=== PATIENT | female | born 1930 | race Caucasian/White ===

== ENCOUNTER 2016-11-04 02:10 | Inpatient (IN) | payer MEDICARE, OTHER ==
[~2016-11-04] VITALS: Ht 167.6 cm; Wt 64.9 kg
[2016-11-04] VITALS (11 sets, daily range): BP systolic 98–154; BP diastolic 55–80
[~2016-11-04 02:10] MED LIST: ACET325T21 PO; ALPR0.25 PO; ASPI81TA2 PO; FAMO20TA5 PO; LACT1CAP6 PO; METO50TA2 PO; TRAM50TA PO; VITA1CAP PO; VITA400C36 PO
[2016-11-04] MEDS ORDERED: FENTANYL PF 100 MCG/2 ML VIAL. IV PRN ×3 (02:30→17:15)
[2016-11-04 02:42] LABS: BASO % 0 % (0-3); EOS % 3 % (0-3); HEMATOCRIT 29.3 % (36.0-47.0); HEMOGLOBIN 9.5 g/dL (12.0-15.5); LYMPH # 1.2 x10^3/uL (1.0-4.8); LYMPH % 19 % (24-48); MEAN CORPUSCULAR HEMOGLOBIN 29 pg (25-35); MEAN CORPUSCULAR HGB CONC 33 g/dL (31-37); MEAN CORPUSCULAR VOLUME 89 fL (79-100); MONO % 10 % (0-9); NEUT % 67 % (31-73); PLATELET COUNT 288 x10^3/uL (140-400); RED BLOOD COUNT 3.28 x10^6/uL (3.50-5.40); WHITE BLOOD COUNT 6.4 x10^3/uL (4.0-11.0)
[2016-11-04 02:46] LABS: CALCIUM 8.6 mg/dL (8.5-10.1); CREATININE 1.7 mg/dL (0.6-1.0); GFR 28.4; POTASSIUM 3.6 mmol/L (3.5-5.1)
[2016-11-04 02:49] LABS: INR 1.2 (0.8-1.1); PROTHROMBIN TIME PATIENT 14.6 SEC (11.7-14.0)
[2016-11-04 02:51] LABS: ALBUMIN 2.9 g/dL (3.4-5.0); ALBUMIN/GLOBULIN RATIO 0.7 (1.0-1.7); TOTAL BILIRUBIN 0.3 mg/dL (0.2-1.0)
--- NOTE | 2016-11-04 03:15 | RAD ---
PROCEDURE CT head without contrast and CT cervical spine without contrast dated 11/04/2016. HISTORY Pain after fall. TECHNIQUE Contiguous axial imaging of the head was performed from skull base to vertex. In addition, axial imaging of the cervical spine performed with thin cut coronal and sagittal reconstructions.Exposure: One or more of the following individualized dose reduction techniques were utilized for this exam: 1. Automated exposure control. 2. Adjustment of the mA and/or kV according to patient size. 3. Use of iterative reconstruction technique. COMPARISON None. FINDINGS Ventricles and sulci are mildly prominent for age. No midline shift or mass effect. Mild patchy low density in the deep/subcortical periventricular white matter. No hemorrhage or extra-axial collection. Posterior fossa and brainstem unremarkable. Visualized paranasal sinuses and mastoid air cells are clear. No acute calvarial abnormality. Images of the cervical spine were acquired skull base to T3. Slight anterolisthesis of C2 on C3 with mild retrolisthesis of C5 on C6. Vertebral body heights are maintained. No prevertebral soft tissue swelling. Posterior elements are intact. No evidence of fracture. Moderate multilevel endplate hypertrophic change with prominent uncovertebral spurring throughout. Severe disc space narrowing at C3-C4, C4-C5, C5-C6 and C6-C7. Mild to moderate facet arthropathy throughout. There is resultant moderate to severe bilateral foraminal stenosis at the mid and lower cervical levels. Multilevel broad-based disc osteophyte complexes resulting in multilevel mild to moderate central stenosis throughout. Visualized soft tissue structures are unremarkable. Low-density nodule at the left lobe thyroid gland measures 9 millimeters in size. Dense calcification of the bilateral carotid bifurcation. Limited images of the lung apices are grossly clear. IMPRESSION HEAD - No evidence of acute intracranial hemorrhage or mass. - Mild chronic small vessel ischemic changes and atrophy. IMPRESSION CERVICAL SPINE: - No evidence of fracture or malalignment. - Moderate multilevel cervical spondylosis. Electronically signed by: Arnel Mcnally (Nov 04, 2016 03:14:12)
[2016-11-04 03:44] LABS: BILIRUBIN,URINE NEGATIVE (NEG); GLUCOSE,URINE NEGATIVE (NEG); NITRITE,URINE POSITIVE (NEG); PROTEIN,URINE NEGATIVE (NEG-TRACE); UROBILINOGEN,URINE 0.2 mg/dL (0.2 mg/dL)
[2016-11-04 03:50] LABS: BACTERIA,URINE MANY /HPF (0-FEW); RBC,URINE 0 /HPF (0-2)
--- NOTE | 2016-11-04 04:18 | ACF ---
Admission Forms Criteria MUSCULOSKELETAL DISEASE GRG Clinical Indications for Admission to Inpatient Care (Place 'X' for any and all applicable criteria): Hospital admission is needed for appropriate care of the patient because of ANY ONE of the following: [X]I. Fracture, dislocation, or other musculoskeletal injury requiring inpatient care(medical) as indicated by ANY ONE of the following(4)(5)(6)(7) [ ]a) Vertebral fracture requiring observation for instability or neurologic compromise (8) [ ]b) Compartment syndrome (proven or cannot be ruled out during observation level of care) (9) [ ]c) Limb-threatening injury [X]d) Major injury requiring inpatient stabilization such as traction initiation or external fixation before internal fixation or closure of complex or open fracture [X]e) Major injury requiring inpatient treatment after emergency or observation level care (as appropriate) [ ]f) Severe pain requiring acute inpatient management [ ]II. Newly diagnosed or suspected bone, joint, or orthopedic device infection (e.g., osteomyelitis, septic arthritis) needing ANY ONE of the following(1)(2)(3) [ ]a) IV antibiotics that cannot be initiated in other than inpatient setting (e.g., patient too unstable or home infusion not available) [ ]b) Device removal or replacement [ ]c) Bone or soft tissue debridement [ ]d) Joint drainage (drain placement or repetitive aspirations) [ ]III. Severe rheumatologic disease (e.g., systemic lupus erythematosus, rheumatoid arthritis) with complications or comorbidities (Also use Optimal Recovery Care Criteria or General Recovery Criteria as appropriate on the basis of predominant condition), including ANY ONE of the following(10 )(11)(12)(13) [ ]a) Severe infection (e.g., FACULTY DEAN infection, sepsis) (14) [ ]b) Respiratory complications, including ANY ONE of the following: [ ]i) Pleural effusion with respiratory compromise [ ]ii) Pulmonary hypertension with congestive failure [ ]iii) Respiratory failure [ ]iv) Pulmonary hemorrhage (15) [ ]c) Hematologic disease, including ANY ONE of the following: [ ]i) Coagulopathy with bleeding [ ]ii) Thrombosis with hypercoagulable state [ ]iii) Thrombotic thrombocytopenic purpura [ ]d) Cerebritis with seizures, psychosis, or other severe abnormalities [ ]e) Vertebral destruction with monitoring needed for cervical myelopathy& possible respiratory compromise [ ]f) Exacerbation that requires inpatient treatment (e.g., intravenous immunosuppression) (16) [ ]g) Acute renal failure [ ]IV. Severe vasculitis with complications or comorbidities (Also use Optimal Recovery Care Criteria or General Recovery Criteria as appropriate on the basis of predominant condition), including ANY ONE of the following(11)(12)(17)(18)(19)(20) [ ]a) FACULTY DEAN vasculitis with seizures, psychosis, or other severe abnormalities (22) [ ]b) Renal failure (16) [ ]c) Pulmonary hemorrhage (15) [ ]d) Cerebral infarction [ ]e) Gastrointestinal ischemia [ ]f) Gangrene or threatened amputation [ ]g) Exacerbation that requires inpatient treatment (e.g., intravenous immunosuppression) (19)(21) [ ]V. Severe myopathy as indicated by ANY ONE of the following (28)(29) [ ]a) New onset of airway compromise or inability to swallow [ ]b) Respiratory deterioration with observation needed for impending respiratory failure [ ]c) Exacerbation that requires inpatient treatment (e.g., intravenous immunosuppression) [ ]. Severe gout (crystal arthropathy) as indicated by ANY ONE of the following (23)(24) [ ]a) Severe pain requiring acute inpatient management [ ]b) Exacerbation that requires inpatient treatment (e.g., intravenous treatment) [ ]VII.Rhabdomyolysis and ANY ONE of the following (25)(26)(27) [ ]a) Acute renal failure [ ]b) Need for intravenous hydration after emergency or observation level care (as appropriate) [ ]c) Inability to maintain oral hydration [ ]d) Change in mental status [ ]e) Electrolyte abnormality that remains after emergency or observation level care (as appropriate) [ ]VIII Post amputation complication, as indicated by ANY ONE of the following [ ]a) Infection [ ]b) Dehiscence [ ]c) Myodesis failure [ ]IX. Severe pain requiring acute inpatient management as indicated by ALL of the following (30)(31)(32) [ ]a) Continuous or frequent (e.g., every 2 to 4 hrs) parenteral analgesics required [A] [ ]b) Rapid improvement expected from treatment or acute intervention ( e.g., surgery, anesthesia procedure[B] [ ]X. Musculoskeletal Disease and ALL of the following: [ ]a) Symptom or finding for which emergency and observation care have failed or are not considered appropriate (Use General Criteria: Observation Care as appropriate) [ ]b) Presence of ANY ONE of the following [ ]i) A General Admission Criteria [ ]ii) A Pediatric General Admission Criteria The original [facility] content created by [facility] has been revised. The portions of the content which have been revised are identified through the use of italic text or in bold, and [facility] has neither reviewed nor approved the modified material. All other unmodified content is copyright [facility]. Please see references footnoted in the original [facility] edition 2016 Admission Criteria Met?: Yes BRODIE FUNK Nov 04, 2016 04:18
[2016-11-04] MEDS ORDERED: MORPHINE SULFATE 4 MG/ML DISP.SYRIN. IV PRN ×2 (04:30→17:15)
[2016-11-04] MEDS ORDERED: MORPHINE SULFATE 4 MG/ML DISP.SYRIN. IV ONE (04:30)
[2016-11-04] MEDS: IV NORMAL SALINE 1000ML BAG 1,000 ML IV SCH ×5 (04:36→18:32)
--- NOTE | 2016-11-04 05:01 | ED.ADGEN ---
Past Medical History Past Medical History: Cancer, Dementia, GERD, Hypertension Past Surgical History: Cancer Surgery Additional Past Surgical Histo: RIGHT MASECTOMY Alcohol Use: None Drug Use: None Adult General Chief Complaint Chief Complaint: MECHANICAL FALL HPI HPI Patient is a 86 year old woman, history of breast cancer status post mastectomy , hypertension, dementia, GERD, who presents to the emergency department via EMS after mechanical fall at her [facility]. Patient states that she was attempting to walk to the bathroom by herself when she fell. She was found lying on the ground by [facility] facility next to her bed. 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 Patient denies any neck pain or headache, any weakness numbness or tingling, any chest pain or shortness breath, any nausea or vomiting. 200 baseline metal status per nursing report. Based on age, mental status, mechanism injury with distracting injury, c-collar placed upon arrival to the emergency department. Review of Systems Review of Systems Constitutional: Denies fever or chills. [] Eyes: Denies change in visual acuity. [] HENT: Denies nasal congestion or sore throat. [] Respiratory: Denies cough or shortness of breath. [] Cardiovascular: Denies chest pain or edema. [] GI: Denies abdominal pain, nausea, vomiting, bloody stools or diarrhea. [] : Denies dysuria. [] Musculoskeletal: Denies back pain, complaining of pain in the left lower extremity and hip region. Integument: Denies rash. [] Neurologic: Denies headache, focal weakness or sensory changes. [] Endocrine: Denies polyuria or polydipsia. [] Lymphatic: Denies swollen glands. [] Psychiatric: Denies depression or anxiety. [] Current Medications Current Medications Current Medications Medications (Trade) Dose Ordered Sig/Brandon Start Time Stop Time Status Last Admin Dose Admin Fentanyl Citrate (Fentanyl 2ml Vial) 50 mcg PRN Q15MIN PRN 11/04/16 02:30 11/05/16 02:29 11/04/16 03:11 50 MCG Allergies Allergies Allergies Coded Allergies Type Severity Reaction Last Updated Verified cephalexin Allergy Unknown 10/21/15 Yes ciprofloxacin Allergy Unknown 10/21/15 Yes ibuprofen Allergy Unknown 10/21/15 Yes levofloxacin Allergy Unknown 10/21/15 Yes lisinopril Allergy Unknown 10/21/15 Yes losartan Allergy Unknown 10/21/15 Yes Physical Exam Physical Exam Constitutional: Well developed, well nourished, distress secondary to pain, non- toxic appearance. [] HENT: Normocephalic, atraumatic, bilateral external ears normal, oropharynx moist, no oral exudates, nose normal. [No hemotympanum, no septal hematoma.] Eyes: PERRLA, EOMI, conjunctiva normal, no discharge. [] Neck: Normal range of motion, no tenderness, supple, no stridor. C-collar in place. [] Cardiovascular:Heart rate regular rhythm, no murmur [] Lungs & Thorax: Diminished breath sounds at bases bilaterally, no rhonchi, rales or wheezing identified. No chest or crepitus or tenderness. [] Abdomen: Bowel sounds normal, soft, no tenderness, no rebound, rigidity, no guarding, no masses, no pulsatile masses. [] Skin: Warm, dry, no erythema, no rash. [] Back: No midline tenderness, no step-offs or deformities, no CVA tenderness. [] Extremities: Patient with shortening and slight rotation of the left lower extremity, with firmness and swelling of the left thigh, tenderness to palpation along the greater trochanter, pulses are 3+ equal intact bilaterally, no cyanosis, no clubbing, no other injuries identified, no edema. [] Neurologic: Alert and oriented, baseline mental status, normal motor function, normal sensory function, no focal deficits noted. [] Psychologic: Affect normal, judgement normal, mood normal. [] Current Patient Data Vital Signs Vital Signs Date Time Temp Pulse Resp B/P Pulse Ox O2 Delivery O2 Flow Rate FiO2 11/04/16 03:11 16 94 Room Air 11/04/16 02:10 98.7 127/62 98.7 Lab Values Laboratory Tests Test 11/04/16 02:25 11/04/16 03:15 White Blood Count 6.4x10^3/uL (4.0-11.0) Red Blood Count 3.28x10^6/uL (3.50-5.40) L Hemoglobin 9.5g/dL (12.0-15.5) L Hematocrit 29.3% (36.0-47.0) L Mean Corpuscular Volume 89fL (79-100) Mean Corpuscular Hemoglobin 29pg (25-35) Mean Corpuscular Hemoglobin Concent 33g/dL (31-37) Red Cell Distribution Width 14.0% (11.5-14.5) Platelet Count 288x10^3/uL (140-400) Neutrophils (%) (Auto) 67% (31-73) Lymphocytes (%) (Auto) 19% (24-48) L Monocytes (%) (Auto) 10% (0-9) H Eosinophils (%) (Auto) 3% (0-3) Basophils (%) (Auto) 0% (0-3) Neutrophils # (Auto) 4.3x10^3uL (1.8-7.7) Lymphocytes # (Auto) 1.2x10^3/uL (1.0-4.8) Monocytes # (Auto) 0.6x10^3/uL (0.0-1.1) Eosinophils # (Auto) 0.2x10^3/uL (0.0-0.7) Basophils # (Auto) 0.0x10^3/uL (0.0-0.2) Prothrombin Time 14.6SEC (11.7-14.0) H Prothrombin Time INR 1.2 (0.8-1.1) H PTT 34SEC (24-38) Sodium Level 142mmol/L (136-145) Potassium Level 3.6mmol/L (3.5-5.1) Chloride Level 106mmol/L (98-107) Carbon Dioxide Level 28mmol/L (21-32) Anion Gap 8 (6-14) Blood Urea Nitrogen 41mg/dL (7-20) H Creatinine 1.7mg/dL (0.6-1.0) H Estimated GFR (Cockcroft-Gault) 28.4 BUN/Creatinine Ratio 24 (6-20) H Glucose Level 104mg/dL (70-99) H Calcium Level 8.6mg/dL (8.5-10.1) Total Bilirubin 0.3mg/dL (0.2-1.0) Aspartate Amino Transferase (AST) 20U/L (15-37) Alanine Aminotransferase (ALT) 15U/L (14-59) Alkaline Phosphatase 101U/L (46-116) Total Protein 7.0g/dL (6.4-8.2) Albumin 2.9g/dL (3.4-5.0) L Albumin/Globulin Ratio 0.7 (1.0-1.7) L Urine Collection Type U cath Urine Color Yellow Urine Clarity Clear Urine pH 5.0 Urine Specific [place] 1.010 Urine Protein Negativemg/dL (NEG-TRACE) Urine Glucose (UA) Negativemg/dL (NEG) Urine Ketones (Stick) Negativemg/dL (NEG) Urine Blood Negative (NEG) Urine Nitrite Positive (NEG) Urine Bilirubin Negative (NEG) Urine Urobilinogen Dipstick 0.2mg/dL (0.2 mg/dL) Urine Leukocyte Esterase Small (NEG) Urine RBC 0/HPF (0-2) Urine WBC 5-10/HPF (0-4) Urine Squamous Epithelial Cells None/LPF Urine Amorphous Sediment Present/HPF Urine Bacteria Many/HPF (0-FEW) Urine Mucus Slight/LPF Laboratory Tests 11/04/16 02:25 Laboratory Tests 11/04/16 02:25 EKG EKG EC: Sinus rhythm, heart rate 74 beats minute, upright axis, QTC of 436, MO 186, QRS of 86, no ST elevations or depressions, no evidence of acute ST abnormalities. As interpreted by me. Radiology/Procedures Radiology/Procedures Chest x-ray: One view: Patient with cardiomegaly, ciliary rotated, tortuous aorta, no pneumothorax, no infiltrates, no effusions, no soft tissue or bony abnormalities identified. As interpreted by me. Pelvis and left hip x-ray: Three-view: Patient with displaced, mildly comminuted intertrochanteric fracture of the left femur. As inserted by me. Left femur x-ray: Two-view: Edge of fracture fragment noted from displaced mildly comminuted intertrochanteric fracture of the left intertrochanteric left femur is noted in the pelvis film, no other abnormalities identified. Course & Med Decision Making Course & Med Decision Making Pertinent Labs and Imaging studies reviewed. (See chart for details) Patient with a left intertrochanteric femur fracture, good pulses noted, patient 's Pain well controlled after receiving analgesia in the ED. Placed on oxygen due to mild fluctuations after ministrations of narcotics. CT of the head and neck negative for acute fracture or other abnormality, c-collar cleared in the ED without issue. Patient informed of findings, resting comfortably at this time. Hemoglobin of 9.9, mild renal insufficiency and dehydration noted with a creatinine of 1.7 and a blood urea nitrogen of 41. Castillo catheter placed to obtain urine and for patient care. Urinalysis reveals a nitrate positive infection, patient with multiple allergies, discussed with pharmacy, we will proceed with Bactrim DS for treatment, as type of allergic reaction is unknown, even after attempting to receive further information from nursing facility. IV fluids initiated for elevated creatinine and elevated BUN. Findings as above discussed with the patient's primary care provider, Dr. Cardozo, patient accepted to his service as a full admission to the medical telemetry floor with IV fluids , symptomatic management, and consultation for Dr. Miranda of orthopedics, per bridge orders as discussed. Dragon Disclaimer Dragon Disclaimer This electronic medical record was generated, in whole or in part, using a voice recognition dictation system. Departure Impression: Primary Impression: Femur fracture, left Disposition: ADMITTED INPATIENT Admitting Physician: Ismael Cardozo Condition: IMPROVED ALFREDO FLORENCE DO Nov 04, 2016 05:01
[2016-11-04] MEDS: SMZ/TMP 800/160MG TABLET. PO SCH (06:12)
--- NOTE | 2016-11-04 06:14 | EKG ---
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
--- NOTE | 2016-11-04 07:15 | RAD ---
Portable chest, 11/04/2016: History: Pain, fall, hip fracture The heart is enlarged. There is calcific plaquing and tortuosity of the thoracic aorta. The pulmonary vascularity is normal. There appears to be minimal parenchymal scarring. No pulmonary consolidation is seen. There is no evidence of pleural fluid or pneumothorax. The bony structures are demineralized. Moderate degenerative changes are present at both shoulders. IMPRESSION: 1. Cardiomegaly and aortic atherosclerosis. 2. No acute abnormality is detected.
--- NOTE | 2016-11-04 07:15 | RAD ---
Portable pelvis with left hip, 3 views, 11/04/2016: History: Fall, pain The bony structures are demineralized. There is a comminuted intertrochanteric fracture of the left hip. There is a varus deformity at the fracture site. The femoral head is seated within the acetabulum. There are mild degenerative changes at both hip joints. No other fracture or dislocation is identified. Moderate degenerative change is evident in the lower lumbar spine. Surgical clips and sutures are present in the pelvis. Scattered arterial calcifications are present. Left femur, 2 views, 11/04/2016: Views of the distal femur show no additional fracture. Moderate degenerative change is present at the left knee. Extensive arterial as well as venous calcifications are present. IMPRESSION: 1. Demineralization. 2. Acute intertrochanteric fracture of the left hip.
[2016-11-04] MEDS ORDERED: PNEUMOCOCCAL VAX SCREEN BY RX. MC ONE (07:30)
[2016-11-04] MEDS ORDERED: IV RINGERS,LACTATED 1000ML 1,000 ML IV SCH (08:05)
[2016-11-04] MEDS ORDERED: PROCHLORPERAZINE 10 MG/2 ML VIAL. IV PRN (08:15)
[2016-11-04] MEDS ORDERED: HYDROMORPHONE 2 MG/ML VIAL. IV PRN (08:15)
[2016-11-04] MEDS ORDERED: LIDOCAINE 1% 1 ML SYRINGE. ID PRN (08:15)
[2016-11-04] MEDS ORDERED: ONDANSETRON PF 4 MG/2 ML VIAL. IV PRN ×2 (08:15→17:15)
[2016-11-04] MEDS ORDERED: SMZ/TMP 800/160MG TABLET. PO SCH (09:00)
[2016-11-04] MEDS ORDERED: PNEUMOC CONJ VACC 23-VALENT 0.5 ML VIAL. VAX IM ONE (10:00)
[2016-11-04] MEDS ORDERED: ACETAMINOPHEN 325 MG TABLET. PO PRN (10:45)
[2016-11-04] MEDS ORDERED: ALPRAZOLAM 0.25 MG TABLET PO PRN (10:45)
--- NOTE | 2016-11-04 10:45 | PDOC ---
Provider Note Provider Note Pt seen for DR Rao. H&P dictated. #[id number] CRIS CHEN MD Nov 04, 2016 10:45
[2016-11-04] MEDS: ASPIRIN 81 MG TAB.CHEW PO SCH (11:00)
[2016-11-04] MEDS: FAMOTIDINE 20 MG TABLET. PO SCH (11:00)
[2016-11-04] MEDS ORDERED: GABA100C PO (11:19)
[2016-11-04] MEDS ORDERED: FURO-68 PO (11:19)
[2016-11-04] MEDS ORDERED: POTA20TA82 PO (11:19)
[2016-11-04] MEDS ORDERED: METO2.5T PO (11:19)
[2016-11-04] MEDS: METOPROLOL TART IMMED RELEASE 50 MG TABLET PO SCH ×2 (12:09→21:00)
--- NOTE | 2016-11-04 13:06 | HP ---
ADMIT DATE: 11/04/2016 LOCATION: [facility] ATTENDING PHYSICIAN: Dr. Ismael Cardozo. REASON FOR ADMISSION TO THE HOSPITAL: Fall at senior living, left hip fracture. HISTORY OF PRESENT ILLNESS: The patient is an 86-year-old female patient from a senior living, [place], and she had a fall at the facility. She was complaining of pain and was brought to the hospital. X-ray shows a left hip fracture, intertrochanteric fracture. The patient was evaluated by Orthopedics, probably will go for surgery today. PAST MEDICAL HISTORY: She has a history of breast cancer, had a right mastectomy. She also had an IVC filter and lower abdominal surgery. The patient does not remember the details of that. She says she was trying to walk to the bathroom by herself when she fell. She had a CT of the head because she hit her head, negative for bleed or fractures, and past medical history of hypertension, anxiety, and osteoporosis. PAST SURGICAL HISTORY: As mentioned, she had a mastectomy for breast cancer, IVC filter, and abdominal surgery, details not known. ALLERGIES: KEFLEX, CIPRO, IBUPROFEN, LEVOFLOXACIN, LISINOPRIL, AND LOSARTAN. MEDICATIONS AT HOME: The patient is on tramadol 3 times a day at 50 mg, vitamin B complex one daily, vitamin E 400 units daily, Tylenol 325 daily, Xanax 0.25 q. 8 h, aspirin 81 mg daily, Pepcid 20 mg daily, and metoprolol 50 mg twice a day. PERSONAL HISTORY: No history of smoking, alcohol, or drug abuse. SOCIAL HISTORY: Lives in a senior living. REVIEW OF SYSTEMS: CARDIAC: No chest pain. LUNGS: No cough, sputum. GASTROINTESTINAL: No nausea, vomiting. She has pain in the left hip area. Rest of the 14-system was reviewed and negative. PHYSICAL EXAMINATION: GENERAL: Not in distress, pleasant. VITAL SIGNS: Temperature 98, pulse 75, respirations 20, blood pressure 126/75, and 95% on room air. HEENT: Head is atraumatic. Pupils are equal. Oral cavity, few teeth are missing on the front. NECK: Supple. Thyroid not enlarged. JVD not elevated. CHEST: Had a right mastectomy. CARDIOVASCULAR: S1, S2. No murmurs. LUNGS: Clear to auscultation. No wheezing. ABDOMEN: Soft, bowel sounds are present. Noted scar in the lower abdomen. The patient has briefs. No Castillo. RECTAL: Deferred. EXTREMITIES: The patient has pain and swelling in the left thigh. No calf tenderness. Pulses are 1+. NEUROLOGIC: Moving upper extremities. I did not check lower extremities at this point because of the fracture. LABORATORY DATA: Shows a white count of 6, hemoglobin 9.5, and platelets 288. Electrolytes show sodium 142, potassium 3.6, chloride 106, bicarbonate 28, BUN 41, creatinine 1.7, and glucose 104. LFTs were normal. Urine has some nitrites positive, 5 to 10 wbc's. INR is 1.2. CT of the head was negative. CT of cervical spine, no fractures. Chest x-ray was negative. X-ray shows acute intertrochanteric fracture of the left hip. FINAL IMPRESSION: 1. Left hip fracture from mechanical fall. 2. History of hypertension. 3. History of breast cancer, status post mastectomy, right. 4. The patient is a resident at senior living, had a mechanical fall at the facility. 5. Urinary tract infection. PLAN: Plan at this time is to admit the patient to the hospital, hydrate with IV fluids. There is a mild renal insufficiency, and the is patient on oral antibiotics, allergic to none of the medications, is scheduled for surgery today. The patient has an IVC filter. No need of anticoagulation after the surgery. CRIS CHEN MD DR: DAGOBERTO/giovanni JOB#: [id number] / [id number] ISMAEL Mcdaniel MD [facility]
[2016-11-04] MEDS ORDERED: CLINDAMYCIN 600MG PREMIX 50 ML IV ONE (15:43)
[2016-11-04] MEDS ORDERED: CLINDAMYCIN 600MG PREMIX 50 ML IV SCH (16:00)
[2016-11-04] MEDS ORDERED: PROPOFOL 20 ML IV ONE (16:53)
[2016-11-04] MEDS ORDERED: ONDANSETRON PF 4 MG/2 ML VIAL. ONE (16:53)
[2016-11-04] MEDS ORDERED: LIDOCAINE 2% 100 MG/5 ML DISP.SYRIN. ONE (16:53)
[2016-11-04] MEDS ORDERED: DEXAMETHASONE SOD PHOS 20 MG/5 ML VIAL. ONE (16:53)
[2016-11-04] MEDS ORDERED: SEVOFLURANE 61 TO 120 MINUTES. IH ONE (16:53)
--- NOTE | 2016-11-04 17:06 | PDOC ---
BRIEF OPERATIVE NOTE Date: Nov 04, 2016 Pre-Op Diagnosis left it hip fx Post-Op Diagnosis same Procedure Performed ORIF left it hip fx Surgeon Ruben Anesthesia Type: General Blood Loss 200cc Findings above Complications none FLORES MONET MD Nov 04, 2016 17:06
[2016-11-04] MEDS: FENTANYL PF 100 MCG/2 ML VIAL. IV PRN ×2 (17:15→17:27)
[2016-11-04] MEDS ORDERED: POLYETHYLENE GLYCOL 3350 17 GM PACKET. PO PRN (17:15)
[2016-11-04] MEDS ORDERED: MORPHINE SULFATE 2 MG/ML DISP.SYRIN. IV PRN (17:15)
[2016-11-04] MEDS ORDERED: HYDROCODONE/APAP 7.5/325MG TABLET. PO PRN (17:15)
[2016-11-04] MEDS ORDERED: OXYCODONE IR 5 MG TABLET. PO PRN (17:15)
[2016-11-04] MEDS ORDERED: DEXTROSE 50% 25 GM / 50ML DISP.SYRIN. IV PRN (17:15)
[2016-11-04] MEDS: MORPHINE SULFATE 2 MG/ML DISP.SYRIN. IV PRN ×2 (17:41→17:54)
[2016-11-04] MEDS: HYDROCODONE/APAP 7.5/325MG TABLET. PO PRN (21:34)
--- NOTE | 2016-11-04 22:02 | OP ---
DATE OF SURGERY: 11/04/2016 PREOPERATIVE DIAGNOSIS: Displaced intertrochanteric hip fracture, left. POSTOPERATIVE DIAGNOSIS: Displaced intertrochanteric hip fracture, left. PROCEDURE: Operative reduction internal fixation of left intertrochanteric hip fracture with InterTan nail. SURGEON: Ezequiel Miranda M.D. ANESTHESIA: General. ESTIMATED BLOOD LOSS: 200 mL. COMPLICATIONS: None. OPERATIVE INDICATIONS: The patient is an 86-year-old female long-term resident at [facility] that fell getting up to go to the bathroom, had the sudden onset of pain and inability to bear weight, deformity to the left lower extremity. I had gone over with the patient and her 2 daughters that were present. The x-ray findings and the risks, benefits, postoperative course of the planned surgical intervention, the immobility related complications of nonoperative treatment. All the family's questions were answered and they agreed to proceed with operative evaluation and treatment. OPERATIVE TECHNIQUE: The patient was identified, procedure verified, patient placed in the supine position on the [place] fracture table and after adequate amounts of general endotracheal anesthesia were administered, she was positioned with the left leg in traction, Well leg mitchell supported and all bony prominences well padded. Reduction was carried out under fluoroscopic guidance and the left hip was prepped and draped in standard sterile fashion. After timeout was performed, patient and procedure identified and verified, an incision was made just proximal to the greater trochanteric starting point and the starting awl was advanced through the tip of the greater trochanter. A long guidewire was placed and the reaming was carried out up to a size 14 and a size 13 short Intertan 130 degree nail was then placed, guidewire was placed up the center of the femoral neck and measured to a size 115. The lag screw was placed and compressed with excellent reduction of the fracture and excellent compression being noted with the compression lag screw. Distal locking screw was placed to control rotation and position of the hardware and fracture reduction was checked under all degrees of internal and external rotation. Thorough irrigation carried out with normal saline solution. Fascia closure was accomplished with #1 Vicryl sutures, subcutaneous closure with buried Vicryl sutures, skin closure with chase. Sterile dressings were applied. The patient was extubated and transferred to postop holding in stable condition having tolerated the procedure well. EZEQUIEL MIRANDA MD DR: AMADOR/giovanni JOB#: [id number] / [id number]
[2016-11-04] MEDS: CLINDAMYCIN 600MG PREMIX 50 ML IV SCH (23:06)
[2016-11-05] VITALS (7 sets, daily range): BP systolic 85–106; BP diastolic 37–59
[2016-11-05] MEDS: IV NORMAL SALINE 1000ML BAG 1,000 ML IV SCH ×3 (00:30→16:31)
[2016-11-05] MEDS: CLINDAMYCIN 600MG PREMIX 50 ML IV SCH ×2 (04:06→10:59)
[2016-11-05] MEDS: SMZ/TMP 800/160MG TABLET. PO SCH (04:14)
--- NOTE | 2016-11-05 04:32 | CONS ---
DATE OF CONSULTATION: 11/04/2016 REASON FOR CONSULTATION: Left hip fracture. HISTORY OF PRESENT ILLNESS: The patient is an 86-year-old female that is a resident of long-term care at [facility] in [place], who tried to get up to go to the bathroom by herself when she fell landing on the left hip, could not bear weight. She was found on the ground by the correction personnel near her bed. She is not sure whether she hit her head, but does not remember any passing out. Denies any neck pain or headache or focal weakness. She does have dementia, although she is pleasant, conversational, I am getting majority of her history from her family where she has 2 daughters here. PAST MEDICAL HISTORY: Significant for breast cancer, dementia, reflux disease, hypertension. PAST SURGICAL HISTORY: Significant for right mastectomy. MEDICATIONS: List is reviewed. ALLERGIES: She has several allergies including cephalexin, ciprofloxacin, ibuprofen, levofloxacin, lisinopril and losartan. REVIEW OF SYSTEMS: She denies any chest pain, shortness of breath, neck or back pain, radiating pain in the extremities, focal weakness, numbness or tingling, change in bowel or bladder habits. Baseline ambulatory status is that she scoots herself along with her legs in a wheelchair and independently transfers typically. PHYSICAL EXAMINATION: GENERAL: This is a pleasant, cooperative, elderly female, alert and oriented, no acute distress. VITAL SIGNS: Temp 100.2 at the temporal artery, pulse 69, respirations 18, blood pressure 114/62, 97% saturation on 1 liter nasal cannula. EXTREMITIES: On examination of the lower extremities, the left lower extremity is shortened and internally rotated. She has good knee and ankle range of motion, alignment, stability, normal examination of the contralateral right hip, knee and ankle with intact motor function, distal pulses, sensation, reflexes, skin in both lower extremities throughout, very tender on any range of motion of left hip obviously. IMAGING: X-rays show a displaced intertrochanteric left hip fracture. IMPRESSION: Left intertrochanteric hip fracture and a current urinary tract infection that has been treated since her admission. TREATMENT PLAN: She was evaluated by Dr. Nix for her family physician, Dr. Cardozo and she was generally thought to be stable for surgical evaluation and treatment. I had gone over with her family the rationale for surgical treatment and keeping her mobile and the risks, benefits, postoperative course of the procedure including possibility of infection, nerve or blood vessel damage, medical or other anesthetic complications, blood clots and the usual DVT prophylaxis and the risk for bleeding as a result, especially if she would have a fall or head injury. All their questions were answered. We are going to proceed with surgery today. FLORES MONET MD DR: AMADOR/giovanni JOB#: [id number] / [id number]
[2016-11-05] MEDS ORDERED: MAGNESIUM HYDROXIDE 2,400 MG/30 ML ORAL.SUSP. PO PRN (06:00)
[2016-11-05 06:28] LABS: BASO % 0 % (0-3); EOS % 0 % (0-3); HEMATOCRIT 23.3 % (36.0-47.0); HEMOGLOBIN 7.5 g/dL (12.0-15.5); LYMPH # 0.8 x10^3/uL (1.0-4.8); LYMPH % 10 % (24-48); MEAN CORPUSCULAR HEMOGLOBIN 29 pg (25-35); MEAN CORPUSCULAR HGB CONC 32 g/dL (31-37); MEAN CORPUSCULAR VOLUME 90 fL (79-100); MONO % 10 % (0-9); NEUT % 80 % (31-73); PLATELET COUNT 228 x10^3/uL (140-400); RED BLOOD COUNT 2.58 x10^6/uL (3.50-5.40); RED CELL DISTRIBUTION WIDTH 13.9 % (11.5-14.5); WHITE BLOOD COUNT 7.6 x10^3/uL (4.0-11.0)
[2016-11-05 06:39] LABS: CALCIUM 8.1 mg/dL (8.5-10.1); CREATININE 1.5 mg/dL (0.6-1.0); GFR 32.8; POTASSIUM 4.4 mmol/L (3.5-5.1)
[2016-11-05] MEDS: SENNOSIDES/DOCUSATE 8.6/50MG TABLET. PO SCH (09:00)
[2016-11-05] MEDS: FAMOTIDINE 20 MG TABLET. PO SCH (09:00)
[2016-11-05] MEDS: ASPIRIN 81 MG TAB.CHEW PO SCH (09:00)
[2016-11-05] MEDS: METOPROLOL TART IMMED RELEASE 50 MG TABLET PO SCH ×2 (09:01→21:00)
[2016-11-05 14:02] LABS: HEMATOCRIT 22.6 % (36.0-47.0); HEMOGLOBIN 7.3 g/dL (12.0-15.5)
[2016-11-05] MEDS: HYDROCODONE/APAP 7.5/325MG TABLET. PO PRN (15:28)
[2016-11-05] MEDS ORDERED: BISACODYL 10 MG SUPP.RECT PR PRN (16:00)
--- NOTE | 2016-11-05 23:24 | PN ---
DATE: 11/05/2016 SUBJECTIVE: This patient is an 86-year-old female patient, resident at [facility] and apparently has mechanical fall with resultant left hip fracture. She was seen by the orthopedic surgeon, underwent operative reduction and internal fixation left intertrochanteric hip fracture with InterTAN nail. When I saw her this morning, she was resting slightly propped up in bed, in no apparent respiratory distress. She was sleepy, but arousable. On questioning her, denied any complaint, in particular, she denied any pain, denied any shortness of breath, cough, phlegm or hemoptysis. PHYSICAL EXAMINATION: GENERAL: When I examined her, she looked well and was slightly pale, but no jaundice, cyanosis, or thyromegaly. No jugular venous distention. No limb edema. VITAL SIGNS: Her heart rate was 73, blood pressure was 101/50, temperature was 99.5, respiratory rate was 18 and oxygen saturation was 98%. HEAD, EYES, EARS, NOSE AND THROAT: Normocephalic, atraumatic. NECK: Supple. HEART: Showed normal first and second heart sounds with no gallop, rub or murmur. CHEST: Clear to auscultation. No crepitation or rhonchi. ABDOMEN: Distended, soft, nontender. No guarding or rigidity. No organomegaly. Hernial orifices intact. Bowel sounds normal. NEUROLOGIC: She was sleepy, but arousable. All cranial nerves intact. She moves extremities without difficulty. LABORATORY DATA: Her lab work this morning showed a white cell count 7600, hemoglobin 7.5, hematocrit 23.3, MCV 90 and platelet count 228,000. Her chemistry showed a serum sodium 145, potassium 4.4, chloride 108, bicarbonate 25, anion gap of 12, BUN 31, creatinine was 1.5, estimated GFR was 33 mL per minute. Her glucose 129, calcium was 8.1. Her nasal screen for ____ was negative. ASSESSMENT: 1. Mechanical fall with resultant left intertrochanteric fracture status post operative reduction and internal fixation of left intertrochanteric hip fracture with InterTAN nail. 2. Acute blood loss anemia with a hemoglobin that dropped from 9.5 and 29.3 down to 7.5 and 23.3. 3. Acute on chronic kidney failure. Her BUN and creatinine came down from 41 and 1.7 down to 31 and 1.5. PLAN: My plan is to arrange for her to have a stat H and H this afternoon and if the hemoglobin is less than 7, I will arrange for her to transfuse her with 1 unit of blood. JEZ JIMENEZ MD DR: ANUSHA/giovanni JOB#: [id number] / [id number]
[2016-11-06] VITALS (12 sets, daily range): BP systolic 103–123; BP diastolic 55–70
[2016-11-06 06:18] LABS: BASO % 0 % (0-3); EOS % 3 % (0-3); LYMPH # 0.9 x10^3/uL (1.0-4.8); LYMPH % 12 % (24-48); MEAN CORPUSCULAR HEMOGLOBIN 29 pg (25-35); MEAN CORPUSCULAR HGB CONC 34 g/dL (31-37); MEAN CORPUSCULAR VOLUME 88 fL (79-100); MONO % 11 % (0-9); NEUT % 73 % (31-73); PLATELET COUNT 189 x10^3/uL (140-400); RED BLOOD COUNT 2.06 x10^6/uL (3.50-5.40); RED CELL DISTRIBUTION WIDTH 14.1 % (11.5-14.5); WHITE BLOOD COUNT 6.9 x10^3/uL (4.0-11.0)
[2016-11-06] MEDS: SMZ/TMP 800/160MG TABLET. PO SCH (06:20)
[2016-11-06] MEDS: IV NORMAL SALINE 1000ML BAG 1,000 ML IV SCH ×2 (06:21→16:30)
[2016-11-06 06:38] LABS: ALBUMIN 2.2 g/dL (3.4-5.0); ALBUMIN/GLOBULIN RATIO 0.7 (1.0-1.7); CALCIUM 7.9 mg/dL (8.5-10.1); CREATININE 1.7 mg/dL (0.6-1.0); GFR 28.4; POTASSIUM 3.8 mmol/L (3.5-5.1); TOTAL BILIRUBIN 0.3 mg/dL (0.2-1.0); TOTAL PROTEIN 5.4 g/dL (6.4-8.2)
[2016-11-06 06:55] LABS: HEMOGLOBIN 6.1 g/dL (12.0-15.5)
[2016-11-06 06:56] LABS: HEMATOCRIT 18.1 % (36.0-47.0)
[2016-11-06] MEDS: FAMOTIDINE 20 MG TABLET. PO SCH (09:54)
[2016-11-06] MEDS: SENNOSIDES/DOCUSATE 8.6/50MG TABLET. PO SCH (09:55)
[2016-11-06] MEDS: ASPIRIN 81 MG TAB.CHEW PO SCH (09:55)
[2016-11-06] MEDS: METOPROLOL TART IMMED RELEASE 50 MG TABLET PO SCH ×2 (09:55→21:11)
[2016-11-06] MEDS ORDERED: ACETAMINOPHEN 325 MG TABLET. PO ONE (12:00)
[2016-11-06] MEDS ORDERED: DIPHENHYDRAMINE 50 MG/ML VIAL IM ONE (12:00)
[2016-11-06] MEDS ORDERED: DIPHENHYDRAMINE 50 MG/ML VIAL IVP ONE (12:00)
[2016-11-06] MEDS ORDERED: HYDROCORTISONE SOD SUCC/PF 100 MG/2 ML VIAL. IV ONE (12:00)
[2016-11-07] VITALS (11 sets, daily range): BP systolic 108–147; BP diastolic 60–93
--- NOTE | 2016-11-07 01:20 | PN ---
DATE: 11/06/2016 SUBJECTIVE: Ms. Suarez is resting, slightly propped up, sleeping comfortably, in no apparent distress. On questioning her, denied any complaint; however, the nursing staff stated that she spiked her temperature when they started blood transfusion. Her temperature went up to 101.3, so the blood transfusion stopped and the patient was given Benadryl and hydrocortisone. OBJECTIVE: GENERAL: When I saw her this afternoon, she looked pale, not jaundiced, cyanosed. No thyromegaly. No jugular venous distention. No limb edema. VITAL SIGNS: Her heart rate is 76, blood pressure 123/65, temperature was 101.3, respiratory rate was 16, and oxygen saturation was 91% on 2 L of oxygen. EXAMINATION OF THE HEAD, EYES, EARS, NOSE AND THROAT: Showed normocephalic, atraumatic. NECK: Supple. HEART: Showed normal first and second heart sounds with no gallop, rub, or murmur. CHEST: Clear to auscultation. No crepitation or rhonchi. ABDOMEN: Distended, soft, nontender. No guarding or rigidity. No organomegaly. Hernial orifices intact. Bowel sounds normal. NEUROLOGIC: She is demented without any obvious lateralizing sign. All her cranial nerves intact. She moves her upper extremities without difficulty. She is mostly bed bound. Her intake was 1600, output was 850. LABORATORY DATA: Her lab work this morning showed a white cell count of 6900, hemoglobin 6.1, hematocrit 18, MCV 88, and platelet count of 189,000. Her serum sodium was 144, potassium 3.8, chloride 110, bicarbonate 24, anion gap of 10, BUN 29, creatinine 1.7, estimated GFR was 28 mL per minute. Her glucose 103, calcium was 7.9. Total bilirubin, AST, ALT, alkaline phosphatase were normal. Total protein was 5.4, albumin was 2.2. Her prothrombin time was 14.6, INR was 1.2, and APTT was 34. ASSESSMENT: 1. Mechanical fall with resultant left intertrochanteric fracture status post open reduction and internal fixation with the InterTAN nail. 2. Acute blood loss anemia. The hemoglobin and hematocrit have dropped down from 9.5 and 29.3 down to 6.1 and 18. 3. Acute on chronic kidney failure. PLAN: My plan is to return a unit of blood down to the Blood Bank as she might have a transfusion reaction. We stopped the transfusion as she spiked her temperature up to 101.3 and gave her Benadryl and hydrocortisone. If there is no mismatch we will transfer 1 unit of blood. We will repeat all her lab works tomorrow. JEZ JIMENEZ MD DR: ANUSHA/giovanni JOB#: [id number] / [id number]
[2016-11-07] MEDS: SMZ/TMP 800/160MG TABLET. PO SCH (05:51)
[2016-11-07] MEDS: HYDROCODONE/APAP 7.5/325MG TABLET. PO PRN ×2 (05:52→20:55)
[2016-11-07 06:49] LABS: BASO % 0 % (0-3); EOS % 1 % (0-3); HEMATOCRIT 22.7 % (36.0-47.0); HEMOGLOBIN 7.4 g/dL (12.0-15.5); LYMPH # 1.1 x10^3/uL (1.0-4.8); LYMPH % 13 % (24-48); MEAN CORPUSCULAR HEMOGLOBIN 30 pg (25-35); MEAN CORPUSCULAR HGB CONC 33 g/dL (31-37); MEAN CORPUSCULAR VOLUME 90 fL (79-100); MONO % 10 % (0-9); NEUT % 75 % (31-73); PLATELET COUNT 203 x10^3/uL (140-400); RED BLOOD COUNT 2.52 x10^6/uL (3.50-5.40); RED CELL DISTRIBUTION WIDTH 14.5 % (11.5-14.5); WHITE BLOOD COUNT 8.4 x10^3/uL (4.0-11.0)
[2016-11-07 07:01] LABS: CALCIUM 8.3 mg/dL (8.5-10.1); CREATININE 1.4 mg/dL (0.6-1.0); GFR 35.6; POTASSIUM 3.4 mmol/L (3.5-5.1)
[2016-11-07] MEDS: METOPROLOL TART IMMED RELEASE 50 MG TABLET PO SCH ×2 (09:00→20:55)
[2016-11-07] MEDS: SENNOSIDES/DOCUSATE 8.6/50MG TABLET. PO SCH (09:08)
[2016-11-07] MEDS: ASPIRIN 81 MG TAB.CHEW PO SCH (09:09)
[2016-11-07] MEDS: FAMOTIDINE 20 MG TABLET. PO SCH (09:09)
[2016-11-07] MEDS: IV NORMAL SALINE 1000ML BAG 1,000 ML IV SCH ×2 (11:53)
--- NOTE | 2016-11-07 14:01 | PDOC ---
PROGRESS NOTES Subjective Subjective Problems overnight: Transfused yesterday really hasn't gotten up and around much with physical therapy as a result. Hip feels good no complaints Objective Vital Signs Vital Signs Date Time Temp Pulse Resp B/P Pulse Ox O2 Delivery O2 Flow Rate FiO2 11/07/16 13:50 97.5 91 16 120/72 97.5 11/07/16 11:00 98 Room Air 11/06/16 15:00 2.0 Physical Exam Hip incision clean dry intact leg lengths equal distal neurovascular status intact Labs Laboratory Tests Test 11/06/16 05:35 11/07/16 06:08 White Blood Count 6.9x10^3/uL (4.0-11.0) 8.4x10^3/uL (4.0-11.0) Red Blood Count 2.06x10^6/uL (3.50-5.40) 2.52x10^6/uL (3.50-5.40) Hemoglobin 6.1g/dL (12.0-15.5) 7.4g/dL (12.0-15.5) Hematocrit 18.1% (36.0-47.0) 22.7% (36.0-47.0) Mean Corpuscular Volume 88fL (79-100) 90fL (79-100) Mean Corpuscular Hemoglobin 29pg (25-35) 30pg (25-35) Mean Corpuscular Hemoglobin Concent 34g/dL (31-37) 33g/dL (31-37) Red Cell Distribution Width 14.1% (11.5-14.5) 14.5% (11.5-14.5) Platelet Count 189x10^3/uL (140-400) 203x10^3/uL (140-400) Neutrophils (%) (Auto) 73% (31-73) 75% (31-73) Lymphocytes (%) (Auto) 12% (24-48) 13% (24-48) Monocytes (%) (Auto) 11% (0-9) 10% (0-9) Eosinophils (%) (Auto) 3% (0-3) 1% (0-3) Basophils (%) (Auto) 0% (0-3) 0% (0-3) Neutrophils # (Auto) 5.1x10^3uL (1.8-7.7) 6.3x10^3uL (1.8-7.7) Lymphocytes # (Auto) 0.9x10^3/uL (1.0-4.8) 1.1x10^3/uL (1.0-4.8) Monocytes # (Auto) 0.7x10^3/uL (0.0-1.1) 0.8x10^3/uL (0.0-1.1) Eosinophils # (Auto) 0.2x10^3/uL (0.0-0.7) 0.1x10^3/uL (0.0-0.7) Basophils # (Auto) 0.0x10^3/uL (0.0-0.2) 0.0x10^3/uL (0.0-0.2) Sodium Level 144mmol/L (136-145) 143mmol/L (136-145) Potassium Level 3.8mmol/L (3.5-5.1) 3.4mmol/L (3.5-5.1) Chloride Level 110mmol/L (98-107) 110mmol/L (98-107) Carbon Dioxide Level 24mmol/L (21-32) 23mmol/L (21-32) Anion Gap 10 (6-14) 10 (6-14) Blood Urea Nitrogen 29mg/dL (7-20) 24mg/dL (7-20) Creatinine 1.7mg/dL (0.6-1.0) 1.4mg/dL (0.6-1.0) Estimated GFR (Cockcroft-Gault) 28.4 35.6 BUN/Creatinine Ratio 17 (6-20) Glucose Level 103mg/dL (70-99) 91mg/dL (70-99) Calcium Level 7.9mg/dL (8.5-10.1) 8.3mg/dL (8.5-10.1) Total Bilirubin 0.3mg/dL (0.2-1.0) Aspartate Amino Transf (AST/SGOT) 20U/L (15-37) Alanine Aminotransferase (ALT/SGPT) 12U/L (14-59) Alkaline Phosphatase 68U/L (46-116) Total Protein 5.4g/dL (6.4-8.2) Albumin 2.2g/dL (3.4-5.0) Albumin/Globulin Ratio 0.7 (1.0-1.7) Laboratory Tests Test 11/07/16 06:08 White Blood Count 8.4x10^3/uL (4.0-11.0) Red Blood Count 2.52x10^6/uL (3.50-5.40) Hemoglobin 7.4g/dL (12.0-15.5) Hematocrit 22.7% (36.0-47.0) Mean Corpuscular Volume 90fL (79-100) Mean Corpuscular Hemoglobin 30pg (25-35) Mean Corpuscular Hemoglobin Concent 33g/dL (31-37) Red Cell Distribution Width 14.5% (11.5-14.5) Platelet Count 203x10^3/uL (140-400) Neutrophils (%) (Auto) 75% (31-73) Lymphocytes (%) (Auto) 13% (24-48) Monocytes (%) (Auto) 10% (0-9) Eosinophils (%) (Auto) 1% (0-3) Basophils (%) (Auto) 0% (0-3) Neutrophils # (Auto) 6.3x10^3uL (1.8-7.7) Lymphocytes # (Auto) 1.1x10^3/uL (1.0-4.8) Monocytes # (Auto) 0.8x10^3/uL (0.0-1.1) Eosinophils # (Auto) 0.1x10^3/uL (0.0-0.7) Basophils # (Auto) 0.0x10^3/uL (0.0-0.2) Sodium Level 143mmol/L (136-145) Potassium Level 3.4mmol/L (3.5-5.1) Chloride Level 110mmol/L (98-107) Carbon Dioxide Level 23mmol/L (21-32) Anion Gap 10 (6-14) Blood Urea Nitrogen 24mg/dL (7-20) Creatinine 1.4mg/dL (0.6-1.0) Estimated GFR (Cockcroft-Gault) 35.6 Glucose Level 91mg/dL (70-99) Calcium Level 8.3mg/dL (8.5-10.1) Assessment Assessment POD# [], S/P [ORIF left intertrochanteric hip fracture] Problems: Plan Plan of Care Continue to mobilize with physical therapy Anticoagulation Follow-up about 2 weeks postoperative FLORES MONET MD Nov 07, 2016 14:01
[2016-11-08] MEDS: IV NORMAL SALINE 1000ML BAG 1,000 ML IV SCH ×2 (00:13→08:57)
[2016-11-08 03:17] VITALS: BP 132/69
[2016-11-08] MEDS: HYDROCODONE/APAP 7.5/325MG TABLET. PO PRN (04:02)
[2016-11-08 04:43] LABS: BASO % 1 % (0-3); EOS % 6 % (0-3); HEMATOCRIT 24.3 % (36.0-47.0); HEMOGLOBIN 8.2 g/dL (12.0-15.5); LYMPH % 12 % (24-48); MEAN CORPUSCULAR HEMOGLOBIN 29 pg (25-35); MEAN CORPUSCULAR HGB CONC 34 g/dL (31-37); MEAN CORPUSCULAR VOLUME 86 fL (79-100); MONO % 9 % (0-9); NEUT % 73 % (31-73); PLATELET COUNT 204 x10^3/uL (140-400); RED BLOOD COUNT 2.83 x10^6/uL (3.50-5.40); RED CELL DISTRIBUTION WIDTH 15.8 % (11.5-14.5); WHITE BLOOD COUNT 8.3 x10^3/uL (4.0-11.0)
[2016-11-08 05:14] LABS: ALBUMIN 1.9 g/dL (3.4-5.0); ALBUMIN/GLOBULIN RATIO 0.6 (1.0-1.7); CALCIUM 7.9 mg/dL (8.5-10.1); CREATININE 1.3 mg/dL (0.6-1.0); GFR 38.7; POTASSIUM 3.5 mmol/L (3.5-5.1); TOTAL BILIRUBIN 0.4 mg/dL (0.2-1.0); TOTAL PROTEIN 5.1 g/dL (6.4-8.2)
[2016-11-08] MEDS: SMZ/TMP 800/160MG TABLET. PO SCH (05:52)
[2016-11-08 07:00] VITALS: BP 156/80
--- NOTE | 2016-11-08 07:59 | PN ---
DATE: 11/07/2016 SUBJECTIVE: The patient is resting, slightly propped in bed, in no apparent respiratory distress. She is awake, alert. On questioning her, denied any complaint. She had a blood transfusion reaction yesterday, but eventually, she received 1 unit of packed RBCs and her hemoglobin and hematocrit has risen to 7.4 and 22.7. PHYSICAL EXAMINATION: GENERAL: When I examined her this afternoon, she looked well, slightly pale, no jaundice, cyanosis, lymphadenopathy or thyromegaly. No jugular venous distention. No limb edema. VITAL SIGNS: Her heart rate was 82, blood pressure is 110/60, temperature was 98.4, respiratory rate and oxygen saturation was 98% on room air. HEAD, EYES, EARS, NOSE AND THROAT: Showed normocephalic, atraumatic. NECK: Supple. HEART: Showed normal first and second heart sounds with no gallop, rub or murmur. CHEST: Clear to auscultation. No crepitation or rhonchi. ABDOMEN: Distended, soft, nontender. NEUROLOGIC: She is demented without any obvious lateralizing sign. She moves upper extremities without difficulty. She is status post open reduction and internal fixation of left intertrochanteric hip fracture. Her intake was 1700, output was 850. LABORATORY DATA: As of this morning, her white cell count was 8400, hemoglobin 7.4, hematocrit 22.7, MCV 90 and platelet count of 203,000. Chemistry showed a serum sodium of 143, potassium 3.4, chloride 110, bicarbonate 23, anion gap of 10, BUN 24, creatinine 1.4, estimated GFR was 35 mL per minute. Her glucose was 91, calcium was 8.3. ASSESSMENT: 1. Mechanical fall with resultant left intertrochanteric fracture, status post open reduction and internal fixation with InterTAN nail. 2. Acute blood loss anemia for which she received 1 unit of packed RBCs as hemoglobin today is 7.4 and hematocrit was 22.7. We will arrange transfuse of 1 more unit of blood. 3. Acute on chronic kidney injury, resolving. Her creatinine is down to 1.4. PLAN: We will transfuse 1 unit of packed RBCs and repeat her labs tomorrow. She remains stable. We will discharge her back to [facility] for further rehabilitation. JEZ JIMENEZ MD DR: Vinnie JOB#: [id number] / [id number]
[2016-11-08] MEDS: METOPROLOL TART IMMED RELEASE 50 MG TABLET PO SCH ×2 (08:54→22:01)
[2016-11-08] MEDS: ASPIRIN 81 MG TAB.CHEW PO SCH (08:54)
[2016-11-08] MEDS: FAMOTIDINE 20 MG TABLET. PO SCH (08:54)
[2016-11-08] MEDS: SENNOSIDES/DOCUSATE 8.6/50MG TABLET. PO SCH (08:55)
[2016-11-08 11:00] VITALS: BP 131/75
[2016-11-08 15:00] VITALS: BP 117/70
[2016-11-08 19:00] VITALS: BP 128/71
[2016-11-08 23:24] VITALS: BP 137/70
[2016-11-09 03:00] VITALS: BP 148/73
[2016-11-09] MEDS: HYDROCODONE/APAP 7.5/325MG TABLET. PO PRN ×2 (05:54→10:22)
[2016-11-09] MEDS: SMZ/TMP 800/160MG TABLET. PO SCH (05:54)
[2016-11-09 07:20] VITALS: BP 140/74
[2016-11-09] MEDS: METOPROLOL TART IMMED RELEASE 50 MG TABLET PO SCH (09:31)
[2016-11-09] MEDS: FAMOTIDINE 20 MG TABLET. PO SCH (09:31)
[2016-11-09] MEDS: SENNOSIDES/DOCUSATE 8.6/50MG TABLET. PO SCH (09:31)
[2016-11-09] MEDS: ASPIRIN 81 MG TAB.CHEW PO SCH (09:31)
[2016-11-09 10:42] VITALS: BP 106/65
--- NOTE | 2016-11-09 22:20 | DS ---
DATE OF DISCHARGE: 11/09/2016 HOSPITAL COURSE: The patient is sitting comfortably in her chair, in no apparent distress. On questioning her, denied any complaint. The nursing staff did not voice any concern and stated that she had an uneventful night. PHYSICAL EXAMINATION: GENERAL: On examining her, she looked well and was clearly in no apparent respiratory distress, pale, but no jaundice, cyanosis, or thyromegaly. No jugular venous distention. No limb edema. VITAL SIGNS: Her heart rate was 77, blood pressure was 106/65, temperature was 97.7, respiratory rate was 18 and oxygen saturation was 99%. HEAD, EYES, EARS, NOSE AND THROAT: Showed normocephalic, atraumatic. NECK: Supple. HEART: Showed normal first and second heart sounds. No gallop, rub or murmur. CHEST: Clear to auscultation. No crepitation or rhonchi. ABDOMEN: Distended, soft, nontender. NEUROLOGIC: She is demented without any obvious lateralizing sign. She ambulates, she moves all extremities without difficulty. She ambulates with a walker with assistance. Her intake over the last 24 hours was 2618 and output was not recorded. LABORATORY DATA: As of yesterday showed a white cell count of 8300, hemoglobin 8.2, hematocrit 24.3, MCV 86 and platelet count 204,000. Her chemistry showed a serum sodium 143, potassium 3.5, chloride 111, bicarbonate 24, anion gap of 8, BUN 24, creatinine 1.3, estimated GFR was 39 mL per minute. Her glucose was 89, calcium was 7.9. Total bilirubin, AST, ALT, alkaline phosphatase were normal. Total protein was 5.1, albumin was 1.9. DISCHARGE MEDICATIONS: The patient was discharged home to continue on senna-S 1 tablet once a day, hydrocodone 7.5/325 two tablets every 4 hours as needed, ondansetron 4 mg every 4 hours as needed, polyethylene glycol 17 grams daily as needed for constipation, famotidine 20 mg once a day, aspirin 81 mg once a day, metoprolol 50 mg twice a day, alprazolam 0.25 mg every 8 hours and trimethoprim sulfamethoxazole for 5 more days. FINAL DISCHARGE DIAGNOSES: 1. Mechanical fall with resultant left intertrochanteric fracture, status post open reduction and internal fixation. 2. Acute blood loss anemia for which she received 2 unit packed RBCs and most recent hemoglobin was 8.2, hematocrit 24.2. 3. [id number] kidney injury, resolving. Her creatinine is down to 1.4. Other medical problems include breast cancer, dementia, gastroesophageal reflux disease and hypertension. JEZ JIMENEZ MD DR: ANUSHA/giovanni JOB#: [id number] / [id number]
== END 2016-11-09 14:10 | DRG 480 ==
LOC: ER 02:10 → 4 NORTH 03:34
PROVIDERS: ADMIT Internal Medicine; ATTEND Internal Medicine
PROC: 0QS704Z Reposition Left Upper Femur with Internal Fixation Device, Open Approach (ICD-10-PCS; principal; 2016-11-04 16:00)
PROC: 30233N1 Transfusion of Nonautologous Red Blood Cells into Peripheral Vein, Percutaneous Approach (ICD-10-PCS; 2016-11-06)
DX: S72.142A Displaced intertrochanteric fracture of left femur, initial encounter for closed fracture (principal); E43 Unspecified severe protein-calorie malnutrition; N39.0 Urinary tract infection, site not specified; D62 Acute posthemorrhagic anemia; N17.9 Acute kidney failure, unspecified; F03.90 Unspecified dementia, unspecified severity, without behavioral disturbance, psychotic disturbance, mood disturbance, and anxiety; I12.9 Hypertensive chronic kidney disease with stage 1 through stage 4 chronic kidney disease, or unspecified chronic kidney disease; K21.9 Gastro-esophageal reflux disease without esophagitis; W19.XXXA Unspecified fall, initial encounter; T80.92XA Unspecified transfusion reaction, initial encounter; N18.9 Chronic kidney disease, unspecified; Z85.3 Personal history of malignant neoplasm of breast; Z90.10 Acquired absence of unspecified breast and nipple; Z88.1 Allergy status to other antibiotic agents; Z88.8 Allergy status to other drugs, medicaments and biological substances; Z90.11 Acquired absence of right breast and nipple; Y93.89 Activity, other specified; Y92.128 Other place in nursing home as the place of occurrence of the external cause; Y99.8 Other external cause status
CPT/HCPCS: 36415; 70450; 71010; 72125; 73502; 73552; 76000; 80048; 80053; 81001; 85014; 85018; 85027; 85610; 85730; 86078; 86850; 86900; 86901; 86920; 87086; 87186; 87641; 93005; 96374; 96375; C1887; J1100; J1200; J1720; J2270; J2405; J2704; J3010; J3490; J7030; P9016; 97110; 97116; 97530; 97535; 99285-25